=== PATIENT | female | born 1960 | race African-American/Black ===

== ENCOUNTER 2020-06-15 08:12 | Emergency (ER) | payer OTHER ==
[~2020-06-15] VITALS: Ht 170.2 cm; Wt 77.3 kg
[~2020-06-15 08:12] MED LIST: AMLO-258 PO
[2020-06-15] MEDS ORDERED: ERYTHROMYCIN 0.5% 3.5 GM TUBE OPHTHALMIC OINTMENT OU ONE (08:30)
[2020-06-15] MEDS ORDERED: NEOMYCIN/POLYMYXIN B/HYDROCORT 10 ML OTIC SOLUTION AU ONE (08:30)
[2020-06-15] MEDS ORDERED: IBUPROFEN 600 MG TABLET PO ONE (09:00)
[2020-06-15 09:14] VITALS: BP 153/101
[2020-06-15 09:17] LABS: GLUCOSE,POINT OF CARE 104 MG/DL (70-110)
== END 2020-06-15 09:15 | disposition home or self-care (01) ==
LOC: EMS 08:19
DX: H60.93 Unspecified otitis externa, bilateral (principal); H10.9 Unspecified conjunctivitis; I10 Essential (primary) hypertension
CPT/HCPCS: 82948; 99173

== ENCOUNTER 2021-03-25 19:29 | Emergency (ER) | payer OTHER ==
[~2021-03-25] VITALS: Ht 160 cm; Wt 77.3 kg
[2021-03-25] MEDS ORDERED: NAPROXEN 250 MG TABLET PO ONE (20:15)
[2021-03-25 20:20] VITALS: BP 139/81
== END 2021-03-25 20:48 | disposition home or self-care (01) ==
LOC: EMS 19:51
DX: S60.111A Contusion of right thumb with damage to nail, initial encounter (principal); X58.XXXA Exposure to other specified factors, initial encounter; Y93.89 Activity, other specified; Y92.89 Other specified places as the place of occurrence of the external cause; Y99.8 Other external cause status
CPT/HCPCS: 99282; Z7502; Z7610

== ENCOUNTER 2021-08-17 15:28 | Emergency (ER) | payer OTHER ==
[~2021-08-17] VITALS: Ht 160 cm; Wt 81.8 kg
[2021-08-17] MEDS ORDERED: ACETAMINOPHEN 500 MG TABLET PO ONE (19:30)
[2021-08-17] MEDS ORDERED: METHOCARBAMOL 500 MG TABLET PO ONE (19:30)
[2021-08-17] MEDS ORDERED: ACET-3385 PO (19:34)
[2021-08-17] MEDS ORDERED: METH-659 PO (19:34)
[2021-08-17 19:46] VITALS: BP 131/73
== END 2021-08-17 19:57 | disposition home or self-care (01) ==
LOC: EMS 15:28
DX: S39.92XA Unspecified injury of lower back, initial encounter (principal); S19.9XXA Unspecified injury of neck, initial encounter; I10 Essential (primary) hypertension; V49.9XXA Car occupant (driver) (passenger) injured in unspecified traffic accident, initial encounter; Y93.89 Activity, other specified; Y92.89 Other specified places as the place of occurrence of the external cause; Y99.8 Other external cause status
CPT/HCPCS: 71046; 72040; 72100; 99284

== ENCOUNTER 2022-01-20 18:22 | Emergency (ER) | payer OTHER ==
[~2022-01-20] VITALS: Ht 157.5 cm; Wt 81.8 kg
[~2022-01-20 18:22] MED LIST changes: +ACET-3385 PO; +METH-659 PO
[2022-01-20] MEDS ORDERED: CYCL-448 PO (19:55)
[2022-01-20 19:58] VITALS: BP 135/84
== END 2022-01-20 20:11 | disposition home or self-care (01) ==
LOC: EMS 18:24
DX: M54.50 Low back pain, unspecified (principal); I10 Essential (primary) hypertension; V43.53XA Car driver injured in collision with pick-up truck in traffic accident, initial encounter; Y93.89 Activity, other specified; Y92.411 Interstate highway as the place of occurrence of the external cause; Y99.8 Other external cause status
CPT/HCPCS: 99283